=== PATIENT | female | born 1985 | race Caucasian/White ===

== ENCOUNTER 2017-03-24 08:10 | Day surgery (SDC) | payer OTHER ==
[~2017-03-24] VITALS: Ht 172.7 cm; Wt 88.0 kg
[~2017-03-24 08:10] MED LIST: ALBUTEROL17 G1 IH; CLEOCIN300 MG PO; DEPO-PROVER150 MG/ML IM; Dilaudid PO; ENDOCET 5-3251 EACH PO; Heparin Sodium SC; LEXAPRO20 MG PO; LORTAB,VICODIN15 ML PO; LOVENOX40 MG/0.4 SC; MOBIC15 MG PO; NAPROSYN500 MG PO; PRENATAL1 EACH PO; Tylenol Regular Stre PO; VENTOLIN HFA18 GM IH; VYVANSE20 MG PO; VYVANSE70 MG PO
[2017-03-24 08:58] VITALS: BP 102/62
[2017-03-24] MEDS ORDERED: NORCO 5/3251 TABLET PO (11:49)
[2017-03-24 13:51] VITALS: BP 104/70
[2017-03-24 15:00] VITALS: BP 109/71
== END 2017-03-24 15:29 | disposition home or self-care (01) ==
LOC: SDC 08:10
PROC: 0FT44ZZ Resection of Gallbladder, Percutaneous Endoscopic Approach (ICD-10-PCS; principal; 2017-03-24)
DX: K80.10 Calculus of gallbladder with chronic cholecystitis without obstruction (principal); J45.909 Unspecified asthma, uncomplicated; F32.9 Major depressive disorder, single episode, unspecified; F41.9 Anxiety disorder, unspecified
CPT/HCPCS: 88304; J0690; J1100; J1885; J2270; J2710; J3010